=== PATIENT | male | born 1950 | race Caucasian/White ===

== ENCOUNTER 2016-05-16 06:58 | Day surgery (SDC) | payer OTHER ==
[~2016-05-16] VITALS: Ht 167.6 cm; Wt 83.6 kg
[~2016-05-16 06:58] MED LIST: ACETAMINOPHEN 325 MG TABLET PO PRN
[2016-05-16] MEDS ORDERED: PHENYLEPHRINE HCL 2.5% 2 ML OPHTHALMIC SOLUTION ONE (07:10)
[2016-05-16] MEDS ORDERED: CYCLOPENTOLATE HCL 1% 2 ML OPHTHALMIC SOLUTION ONE (07:10)
[2016-05-16] MEDS ORDERED: RINGERS SOLUTION,LACTATED 500 ML IV ONE ×2 (07:11→07:30)
[2016-05-16] MEDS ORDERED: FLURBIPROFEN SODIUM 0.03% 2.5 ML OPHTHALMIC SOLUTION ONE (07:11)
[2016-05-16] MEDS ORDERED: TROPICAMIDE 1% 2 ML OPHTHALMIC SOLUTION ONE (07:11)
[2016-05-16] MEDS ORDERED: NPH,100V SQ (07:35)
[2016-05-16] MEDS ORDERED: INSLAN SQ (07:35)
[2016-05-16] MEDS ORDERED: SIMV-260 PO (07:35)
[2016-05-16] MEDS: FLURBIPROFEN SODIUM 0.03% 2.5 ML OPHTHALMIC SOLUTION OD SCH ×3 (08:03→08:16)
[2016-05-16] MEDS: TROPICAMIDE 1% 2 ML OPHTHALMIC SOLUTION OD SCH ×3 (08:03→08:16)
[2016-05-16] MEDS: CYCLOPENTOLATE HCL 1% 2 ML OPHTHALMIC SOLUTION OD SCH ×3 (08:03→08:16)
[2016-05-16] MEDS: PHENYLEPHRINE HCL 2.5% 2 ML OPHTHALMIC SOLUTION OD SCH ×3 (08:03→08:16)
[2016-05-16 08:07] LABS: GLUCOSE COMMENT 1 Doctor Notified; GLUCOSE,POINT OF CARE 77 MG/DL (70-110)
[2016-05-16 09:02] LABS: GLUCOSE,POINT OF CARE 72 MG/DL (70-110)
[2016-05-16 11:02] LABS: GLUCOSE,POINT OF CARE 70 MG/DL (70-110)
[2016-05-16] MEDS ORDERED: FentaNYL CITRATE-PF 100 MCG/2 ML VIAL IVP ONE (12:00)
[2016-05-16] MEDS ORDERED: MIDAZOLAM HCL 2 MG/2 ML VIAL IVP ONE (12:00)
[2016-05-16] MEDS ORDERED: POVIDONE-IODINE 10% 15 ML SOLUTION UD TP ONE (16:50)
[2016-05-16] MEDS ORDERED: HYALURONATE SODIUM 12 MG/ML 0.8 ML SYRINGE IO ONE (16:50)
[2016-05-16] MEDS ORDERED: LIDOCAINE HCL/PF 1% 2 ML VIAL IM ONE (16:50)
[2016-05-16] MEDS ORDERED: TETRACAINE HCL VISCOUS 0.5% 0.6 ML OPHTHALMIC SOLUTION OD ONE (16:50)
[2016-05-16] MEDS ORDERED: NEOMYCIN/POLYMYXIN B/DEXAMETH 3.5 GM OPHTHALMIC OINTMENT OD ONE (16:50)
[2016-05-16] MEDS ORDERED: ACETYLCHOLINE CHLORIDE 1 EA INTRAOCULAR SOLUTION KIT IO ONE (16:50)
[2016-05-16] MEDS ORDERED: MethylPREDNISolone SOD SUCC 40 MG/ML VIAL IVP ONE (16:50)
[2016-05-16] MEDS ORDERED: HYALURONATE SOD/CHONDROITIN SOD 0.5 ML VIAL IO ONE (16:50)
== END 2016-05-16 11:05 | disposition home or self-care (01) ==
LOC: SURGERY 06:58
PROVIDERS: ATTEND Ophthalmology
DX: E10.36 Type 1 diabetes mellitus with diabetic cataract (principal); H25.811 Combined forms of age-related cataract, right eye; I10 Essential (primary) hypertension; E78.00 Pure hypercholesterolemia, unspecified; M54.9 Dorsalgia, unspecified; M54.30 Sciatica, unspecified side; Z79.4 Long term (current) use of insulin
CPT/HCPCS: 66984; 82962; 93005; C1780; J2250; J3010; J7120; J2920; J3490

== ENCOUNTER 2016-08-15 05:43 | Day surgery (SDC) | payer OTHER ==
[~2016-08-15] VITALS: Ht 167.6 cm; Wt 84.1 kg
[~2016-08-15 05:43] MED LIST changes: -ACETAMINOPHEN 325 MG TABLET PO PRN; +INSLAN SQ; +NPH,100V SQ; +SIMV-260 PO
[2016-08-15] MEDS ORDERED: PHENYLEPHRINE HCL 2.5% 2 ML OPHTHALMIC SOLUTION ONE (05:52)
[2016-08-15] MEDS ORDERED: CYCLOPENTOLATE HCL 1% 2 ML OPHTHALMIC SOLUTION ONE (05:53)
[2016-08-15] MEDS ORDERED: FLURBIPROFEN SODIUM 0.03% 2.5 ML OPHTHALMIC SOLUTION ONE (05:53)
[2016-08-15] MEDS ORDERED: TROPICAMIDE 1% 2 ML OPHTHALMIC SOLUTION ONE (05:53)
[2016-08-15] MEDS ORDERED: RINGERS SOLUTION,LACTATED 500 ML IV ONE ×2 (05:54→06:30)
[2016-08-15] MEDS: CYCLOPENTOLATE HCL 1% 2 ML OPHTHALMIC SOLUTION OS SCH ×3 (06:42→06:55)
[2016-08-15] MEDS: TROPICAMIDE 1% 2 ML OPHTHALMIC SOLUTION OS SCH ×3 (06:42→06:55)
[2016-08-15] MEDS: PHENYLEPHRINE HCL 2.5% 2 ML OPHTHALMIC SOLUTION OS SCH ×3 (06:42→06:55)
[2016-08-15] MEDS: FLURBIPROFEN SODIUM 0.03% 2.5 ML OPHTHALMIC SOLUTION OS SCH ×3 (06:43→06:56)
[2016-08-15 06:46] LABS: GLUCOSE,POINT OF CARE 102 MG/DL (70-110)
[2016-08-15] MEDS ORDERED: LIDOCAINE HCL/PF 1% 2 ML VIAL IM ONE (17:53)
[2016-08-15] MEDS ORDERED: NEOMYCIN/POLYMYXIN B/DEXAMETH 3.5 GM OPHTHALMIC OINTMENT OS ONE (17:53)
[2016-08-15] MEDS ORDERED: EPINEPHrine 1:1,000 [1 MG/ML] AMP IM ONE (17:53)
[2016-08-15] MEDS ORDERED: ACETYLCHOLINE CHLORIDE 1 EA INTRAOCULAR SOLUTION KIT IO ONE (17:53)
[2016-08-15] MEDS ORDERED: TETRACAINE HCL VISCOUS 0.5% 5 ML OPHTHALMIC SOLUTION OS ONE (17:53)
[2016-08-15] MEDS ORDERED: MethylPREDNISolone SOD SUCC 40 MG/ML VIAL IVP ONE (17:53)
[2016-08-15] MEDS ORDERED: TETRACAINE HCL/PF 0.5% 4 ML OPHTHALMIC SOLUTION OS ONE (17:53)
[2016-08-15] MEDS ORDERED: POVIDONE-IODINE 10% 15 ML SOLUTION UD TP ONE (17:53)
[2016-08-15] MEDS ORDERED: HYALURONATE SOD/CHONDROITIN SOD 0.5 ML VIAL IO ONE (17:53)
[2016-08-15] MEDS ORDERED: MIDAZOLAM HCL 2 MG/2 ML VIAL IVP ONE (23:40)
[2016-08-15] MEDS ORDERED: FentaNYL CITRATE-PF 100 MCG/2 ML VIAL IVP ONE (23:40)
== END 2016-08-15 09:20 | disposition home or self-care (01) ==
LOC: SURGERY 05:43
PROVIDERS: ATTEND Ophthalmology
DX: E11.36 Type 2 diabetes mellitus with diabetic cataract (principal); H25.812 Combined forms of age-related cataract, left eye; I10 Essential (primary) hypertension; E78.00 Pure hypercholesterolemia, unspecified; F17.200 Nicotine dependence, unspecified, uncomplicated; Z79.4 Long term (current) use of insulin; Z72.89 Other problems related to lifestyle; Z98.41 Cataract extraction status, right eye
CPT/HCPCS: 66984; 82962; 93005; C1780; J2250; J3010; J7120; J0171; J2920; J3490